=== PATIENT | male | born 1955 | race Caucasian/White ===

== ENCOUNTER → 2025-03-07 09:03 | Outpatient (REF) | payer MEDICARE, OTHER, SELFPAY | LOC: RAD 09:03 | PROVIDERS: ATTENDING PHYSICIAN Internal Medicine Cardiovascular Disease; FAMILY PHYSICIAN Family Medicine | DX: I35.0 Nonrheumatic aortic (valve) stenosis (principal) | CPT/HCPCS: 74174; 75572; Q9967 ==

== ENCOUNTER 2025-03-14 06:15 | Day surgery (SDC) | payer MEDICARE, OTHER, SELFPAY ==
[2025-03-14] VITALS (14 sets, daily range): BP systolic 119–149; BP diastolic 52–72; BMI 29.1
[2025-03-14 08:26] LABS: ACT-LR - POC 311 Seconds (116-155)
--- NOTE | 2025-03-14 08:51 | ITS.CL.CATH ---
[facility] - Catheterization
Cardiac Catheterization
Procedure Report:
CARDIAC CATHETERIZATION REPORT
Date of Procedure: 03/14/2025
Referring: MYLES Anand
Indication: Severe aortic valve stenosis, known coronary artery disease.
PROCEDURE:
1. Right heart catheterization.
2. Coronary angiography.
3. Successful IVUS of the left main coronary artery.
A total of 24 minutes of procedural/moderate sedation was utilized. An independent certified court/medical interpreter was present to assist with and help manage the patient's level of consciousness and physiologic status.
ACCESS:
1. 6 Omani right radial artery using a modified Seldinger technique.
2. [5] Omani right antecubital vein using a previously placed IV.
CATHETERS:
1. 5 Omani balloon wedge.
2. 5 Omani JL 3.5.
3. 5 Omani JR4.
4. 6 Omani JL 3.5 guiding catheter.
HEMODYNAMIC DATA
Weight (kg): 80.0
AO (s/d/x, mmHg): 120/50/72
LV (s/x, mmHg): Not obtained.
PCWP (a/v/x, mmHg):
PA (s/d/x, mmHg): 29/03/16
RV (s/x, mmHg): 27/12
RA (a/v/x, mmHg):
SVC SvO2 (%): 72.8
IVC SvO2 (%): Not obtained.
RA SvO2 (%): Not obtained.
RV SvO2 (%): Not obtained.
PA SvO2 (%): 74.4
SaO2 (%): 95.1
Hbg (g/dL): 13.4
KIRK
CO (L/min): 5.39
CI (L/min/m2): 2.84
Thermodilution
CO (L/min): Not performed.
CI (L/min/m2): Not performed.
TPG (mmHg): 5
PVR (Dockery Units): 0.93
SVR (dynes*seconds*cm^-5): 950
AVO2 Diff (Volume %): 3.77
Cardiac Power Output (kearney): 0.86 (MAP * CO)/451 (normal 0.5 - 0.7; 0.4 - 0.6 in the elderly)
Cardiac Power Index (kearney/m2): 0.45 (MAP * CI)/451
Lo: 1.75 (PAs-PAd)/RA
AV gradient (x, mmHg): Not obtained.
AV area (cm2): Not obtained.
MV gradient (x, mmHg): Not obtained.
MV area (cm2): Not obtained.
LEFT VENTRICULOGRAPHY: Not performed.
AORTOGRAPHY: Not performed.
CORONARY ANGIOGRAPHY
Dominance: Right.
Left Main: Normal size, bifurcating vessel. There is a 50% lesion in the ostium of the vessel with catheter dampening on engagement.
LAD: Large size vessel giving rise to 2 diagonals. A patent stent is visible in the mid vessel after D2. There are luminal irregularities in the mid LAD proximal to the stent and a 40% lesion in the ostium of the second diagonal.
Ramus: Congenitally absent.
Circumflex: Large size, nondominant vessel giving rise to 3 obtuse marginals. OM1 and OM 2 are small vessels supplying the proximal portion of the lateral wall. OM 3 is a large vessel supplying the majority of the inferolateral wall.
RCA: Large size, dominant vessel. The vessel is densely calcified and chronically totally occluded at its origin. The RPDA and distal RCA are supplied by robust rose-uw-evgob collaterals.
INTERVENTIONS
1. Successful IVUS of the 50% ostial left main coronary artery lesion demonstrating borderline stenosis (MLA = 6.0 mm�).
Narrative:
The decision was made to perform intracoronary imaging. The diagnostic catheter was removed over a wire and exchanged for 6 Omani JL 3.5 guiding catheter. The guiding catheter was advanced into the ascending aorta and seated in the left main
coronary artery. Additional heparin was given to obtain an ACT greater than 250 seconds. After crossing the lesion with a coronary wire, an IVUS catheter was advanced through the guiding catheter and into the ostium of the artery. Ring down was
performed once the imaging crystal was no longer inside of the guiding catheter. The IVUS catheter was advanced into the left main coronary artery. Intravascular ultrasound was performed in a retrograde fashion using a slow pullback. Intracoronary
imaging demonstrated dense calcification of the ostium of the vessel with borderline stenosis on available imaging (MLA = 6.0 mm�). The IVUS catheter was withdrawn, final angiography was performed and the catheter was disengaged.
Closure Device: Vascular band for the right radial artery, manual pressure for the right antecubital vein.
Radiation dose (mGy): 603.33
DAP (cm2.Gy): 49.0641
Fluoroscopy time (minutes): 7.4
CONCLUSIONS:
1. Right dominant circulation with a borderline 50% ostial left main coronary artery lesion (MLA = 6.0 mm�), luminal irregularities in the mid LAD followed by a widely patent mid LAD stent, a 40% lesion in the ostium of the second diagonal and a
chronic total occlusion of the ostium of the RCA with robust nmsy-vd-atoml collaterals.
2. Normal filling pressures (PCWP = 11 mmHg at 80.0 kg).
3. Normal cardiac function (cardiac index = 2.84 L/min/m�, cardiac power index = 0.86 W, Lo = 1.75).
4. Severe aortic valve stenosis by echocardiography.
RECOMMENDATIONS:
1. Expectant management after cardiac catheterization via right radial/antecubital approach.
2. Limited weight bearing on the right wrist for one week.
3. Maintain OMT/GDMT as hemodynamics will tolerate.
4. Discussion at TAVR conference regarding optimal valve replacement strategy given age and borderline ostial left main coronary artery stenosis.
Copy to: MYLES Anand, Pat Barr, D.O.
Scott Caraballo DO, FACC, FACP
== END 2025-03-14 11:47 | disposition home or self-care (01) ==
LOC: CATH 06:15
PROVIDERS: ATTENDING PHYSICIAN Internal Medicine Cardiovascular Disease; FAMILY PHYSICIAN Family Medicine; REFERRING PHYSICIAN Internal Medicine Cardiovascular Disease
DX: I35.0 Nonrheumatic aortic (valve) stenosis (principal); I25.10 Atherosclerotic heart disease of native coronary artery without angina pectoris; E78.5 Hyperlipidemia, unspecified; I10 Essential (primary) hypertension; I25.82 Chronic total occlusion of coronary artery; Z95.5 Presence of coronary angioplasty implant and graft
CPT/HCPCS: 92978; 99152; 99153; 85347; 93005; 93460; C1753; C1769; C1894; Q9967

== ENCOUNTER 2025-04-07 04:50 | Inpatient (IN) | payer MEDICARE, OTHER, SELFPAY ==
[2025-04-05 08:19] VITALS: BMI 27.4
[2025-04-05 09:06] LABS: Urine Character Clear (Clear)
[2025-04-05 09:13] LABS: Hematocrit 45.3 % (39.0-52.0); Hemoglobin 14.8 g/dL (13.0-18.0); Mean Corp Hgb Conc. 32.7 g/dL (33.0-37.0); Mean Corpuscular Volume 91.9 fL (80.0-94.0); Nucleated Red Blood Cells % 0 % (-); Platelet Count 247 10^3/uL (130-400); Red Cell Dist. Width 16.1 % (11.5-14.5)
[2025-04-05 09:17] LABS: INR 1.00; PT 13.3 Sec (11.4-14.6)
--- NOTE | 2025-04-05 09:41 | CM ---
Chart reviewed. Met with the patient in PAT. Reviewed preoperative and postoperative instructions and restrictions, along with showering guidelines. Gave patient 2 soaps. Patient is agreeable to a home visit by CT Transitional RN. Patient is
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 Plan is for the patient to return home with CT Transitional RN.
[2025-04-05 09:49] LABS: ALT (SGPT) 67 U/L (0-50); AST (SGOT) 58 U/L (17-59); Albumin 4.5 g/dl (3.5-5.0); Alkaline Phosphatase 64 U/L (38-126); Blood Urea Nitrogen 19 mg/dl (9-20); Calcium 9.8 mg/dl (8.4-10.2); Carbon Dioxide 32 mmol/L (22-30); Chloride 104 mmol/L (98-107); Estimated Creatinine Clearance 78 ml/min; Glucose 90 mg/dl (70-99); Potassium 4.5 mmol/L (3.5-5.1); Sodium 138 mmol/L (135-145); Total Protein 7.4 g/dl (6.3-8.2); eGFR > 60.00
[2025-04-05 10:42] LABS: Glycohemoglobin (HgbA1c) 5.3 % (4.0-5.9)
[2025-04-07] VITALS (19 sets, daily range): BP systolic 79–151; BP diastolic 50–75; BMI 27.0
[2025-04-07] MEDS: BACTROBAN 2% OINTMENT 1 APPLIC NASAL ×2 (05:24→20:16)
[2025-04-07] MEDS: MAGNESIUM OXIDE 400 MG PO (05:24)
[2025-04-07] MEDS: PROTONIX 40 MG PO (05:24)
[2025-04-07] MEDS: LOPRESSOR 12.5 MG PO (05:33)
--- NOTE | 2025-04-07 05:45 | PTCARENOTE ---
pt admitted into CVICU 2263. pt clipped and prepped for [facility]. wiped w/ CHG. pre-op meds given. pre-op education provided. health commissioner to [facility].
--- NOTE | 2025-04-07 06:07 | W.CVOR.SURPR ---
[facility] Surgeon Immed Pre Op
-
I have examined this patient prior to performance of the scheduled procedure.
The patient's condition is unchanged from the time of the dictated/written History and
Physical and the patient is able to undergo the scheduled procedure.
AVR (bio) + CABG x 2 + LAAE
[2025-04-07 07:26] LABS: ACT+ - POC 104 Seconds (82-134)
[2025-04-07 08:16] LABS: Urine Character Clear (Clear)
[2025-04-07 08:47] LABS: ACT+ - POC 498 Seconds (82-134)
[2025-04-07 09:04] LABS: B.E. - POC -0.3 mmol/L; Glucose - POC 99 mg/dl (70-99); HCO3 - POC 25 mmol/L (21-28); Hematocrit - POC 35 % PCV (42-52); Hemodilution- POC No; Hemoglobin Calculated - POC 11.9; Ionized Calcium - POC 1.18 mmol/L (1.15-1.33); Lactate - POC 0.39 mmol/L (0.36-0.75); O2 Saturation %Calculated-POC 99.9 % (94-98); PCO2 - POC 40 mmHg (35-48); PO2 - POC 323 mmHg (83-108); Potassium - POC 3.9 mmol/L (3.5-5.1); Sodium - POC 143 mmol/L (136-145); Specimen Type - POC Arterial; pH - POC 7.40 (7.35-7.45)
[2025-04-07 09:13] LABS: ACT+ - POC 530 Seconds (82-134)
[2025-04-07 09:31] LABS: ACT+ - POC 502 Seconds (82-134)
[2025-04-07 09:49] LABS: B.E. - POC 3.9 mmol/L; Glucose - POC 140 mg/dl (70-99); HCO3 - POC 27 mmol/L (21-28); Hematocrit - POC 34 % PCV (42-52); Hemodilution- POC Yes; Hemoglobin Calculated - POC 11.6; Ionized Calcium - POC 1.10 mmol/L (1.15-1.33); Lactate - POC 0.93 mmol/L (0.36-0.75); O2 Saturation %Calculated-POC 99.8 % (94-98); PCO2 - POC 34 mmHg (35-48); PO2 - POC 192 mmHg (83-108); POC Comment CPB; Potassium - POC 5.2 mmol/L (3.5-5.1); Sodium - POC 140 mmol/L (136-145); Specimen Type - POC Arterial; pH - POC 7.51 (7.35-7.45)
[2025-04-07 09:57] LABS: ACT+ - POC 529 Seconds (82-134)
[2025-04-07 10:08] LABS: B.E. - POC 2.6 mmol/L; Glucose - POC 147 mg/dl (70-99); HCO3 - POC 27 mmol/L (21-28); Hematocrit - POC 36 % PCV (42-52); Hemodilution- POC Yes; Hemoglobin Calculated - POC 12.2; Ionized Calcium - POC 1.13 mmol/L (1.15-1.33); Lactate - POC 1.01 mmol/L (0.36-0.75); O2 Saturation %Calculated-POC 99.8 % (94-98); PCO2 - POC 41 mmHg (35-48); PO2 - POC 233 mmHg (83-108); POC Comment CPB; Potassium - POC 4.3 mmol/L (3.5-5.1); Sodium - POC 141 mmol/L (136-145); Specimen Type - POC Arterial; pH - POC 7.43 (7.35-7.45)
[2025-04-07 10:16] LABS: ACT+ - POC 525 Seconds (82-134)
[2025-04-07 10:47] LABS: B.E. - POC 2.2 mmol/L; Glucose - POC 136 mg/dl (70-99); HCO3 - POC 27 mmol/L (21-28); Hematocrit - POC 36 % PCV (42-52); Hemodilution- POC Yes; Hemoglobin Calculated - POC 12.2; Ionized Calcium - POC 1.17 mmol/L (1.15-1.33); Lactate - POC 1.57 mmol/L (0.36-0.75); O2 Saturation %Calculated-POC 99.9 % (94-98); PCO2 - POC 40 mmHg (35-48); PO2 - POC 253 mmHg (83-108); POC Comment WARM; Potassium - POC 4.3 mmol/L (3.5-5.1); Sodium - POC 142 mmol/L (136-145); Specimen Type - POC Arterial; pH - POC 7.43 (7.35-7.45)
[2025-04-07 10:52] LABS: ACT+ - POC 123 Seconds (82-134)
--- NOTE | 2025-04-07 11:16 | W.PN.CT.SURG ---
CT Surgery Operative Note
-
CARDIAC SURGERY OPERATIVE REPORT
Preoperative Diagnosis: Aortic valve stenosis with multivessel coronary artery disease involving the ostial left main and RESIDENCY COORDINATOR to the proximal RCA
Postoperative Diagnosis: Same
Procedure(s) Performed:
1. Standard sternotomy with aortic right atrial cannulation
2. Left atrial appendage exclusion [35 mm device]
3. Surgical aortic valve replacement [27 mm biological valve]
4. Coronary artery bypass grafting x 2 (In situ VIGIL to LAD, Ao to RSVG to distal RCA)
5. Placement of temporary atrial ventricular pacing wires
6. Endoscopic vein harvest of the right lower extremity
7. Trans-esophageal echocardiography
Date of Surgery: 04/07/2025
Comorbidities:
1. Symptomatic severe aortic valve stenosis
2. Multivessel coronary artery disease involving the ostial left main
3. Hypertension
4. Hyperlipidemia
5. Carotid artery disease
6. Spinal stenosis
Attending Surgeon: Dirk Farooq MD, MS
Assistants: Floyd Spicer MD (PGY 2 Resident, opening, portion of the annular sutures, closure of part of the aortotomy, closure) Maryana Page PA-C (present and necessary to back office medical assistant, retraction, suction, exposure, suture management, and wound
closure under my direction), Eliana Das PA-C (endo vein harvest)
Anesthesiology: Eugenio Pires MD and Meghan Figueredo CRNA
Scrub and Circulating RNs: oYvani Diaz RN, Caitlyn Valencia RN
Custom Frame Assembler: Bev Kruse CCP
Anesthesia: GETA
EBL: per perfusion records
Products: None
CPB Time: 99 minutes
Aortic Cross Clamp Time: 83 minutes
Indication(s) for Procedures: This is a 69-year-old male who was initially being worked up for transcatheter aortic valve replacement but was found to have significant multivessel coronary artery disease. Given this finding he was referred for
surgery for evaluation of combined AVR and CABG. He is a low risk candidate with good baseline functional status. He was offered surgical revascularization as well as aortic valve replacement and ligation of left atrial appendage given his
elevated [id number] score.
Aortic Valve Description: Heavily calcified trileaflet aortic valve, most of the heavy calcification was towards the left and non coronary annulus. The left coronary artery was the normal anatomic position and the right had heavy calcification
around it consistent with his chronic total occlusion
Conduit(s) Quality:
VIGIL -large/good-quality target
RSVG -good/some minor varicosities overall good quality conduit
Target(s) Quality:
Distal RCA-good quality target with some diffuse plaque, mean flow with Transonic flow probe assessment was 60 cc a minute with a PI of 1.7
LAD -excellent/good quality target, mean flow in the LAD was 29 cc a minute with a pulse index of 3.4
Findings: LVEF on intraoperative DOUG was 60% and 65% post procedure with no new regional wall motion abnormalities. The aortic valve was heavily calcified and resected accordingly. A total of 13 nonpledgeted 2 Ethibond sutures were placed from
LVOT through annulus through sewing cuff securing a 27 mm biological prosthesis into place with core knots. There was no prosthetic PVL or AI. Mean gradient across the prosthesis was 6 mmHg. The VIGIL was harvested in a skeletonized fashion.
Following bypass grafting, test dose cardioplegia was given down each distal and confirmed patency and hemostasis. Each distal was probed both proximally and distally to confirm disease and patency, respectively. His cardiac index postoperatively
was well over 2 without inotropic support. He regained his sinus rhythm immediately after reanimation. There was a small bleeding at the heel of the VIGIL and LAD anastomosis which was repaired with a 7-0 Prolene and some topical hemostatic agents.
He did not require any blood products, did not require inotropic support. His left atrial appendage was verified to be free of any thrombus or debris preoperatively and found to be totally occlusive postoperatively.
Specimen(s): Aortic valve leaflets.
Prosthesis: 27 mm Mack Inspiris Resilia aortic valve, serial number: [id number], left atrial appendage clip, serial #[id number].
Description of Procedure: The patient was taken to the operating room. Their identity and procedure to be performed were verified and they were positioned supine on the operating table. Induction via general anesthesia with endotracheal intubation
was performed and central venous access and arterial monitoring were inserted. A preoperative transesophageal echocardiogram was performed. The patient was then prepped and draped from chin to feet in a sterile fashion. A preoperative time-out was
performed with all members of the team present. A midline chest incision was performed along with median sternotomy. Simultaneous endoscopic access of the right lower extremity for saphenous vein harvest was obtained along with administration of an
initial 5,000 units of IV heparin. A RulTract sternal retractor was positioned to exposure the left internal mammary bed. The mammary was harvested in a skeletonized fashion and found to have good flow. 2 medium clips were applied to the distal end
of the mammary after dividing it. It was wrapped in a papaverine soaked RayTec and replaced back into the left hemithorax. The RulTract was exchanged for a median sternal retractor. The innominate vein was isolated. Full heparinization was given (a
total of 52,000 units). I created a pericardial well. The aortic cannulation site was chosen where it was soft, pliable, and free of calcium. Cannulation was performed with an arterial cannula in the ascending aorta and a triple-stage venous cannula
through the right atrial appendage. The arterial cannula line had an appropriate bounce and correlating pressures with test dosing. Next, a root vent/antegrade cannula was inserted into the ascending aorta. The ACT was confirmed to be over 400 and
retrograde autologous priming was performed before commencing cardiopulmonary bypass. The pulmonary artery was away from the aorta to facilitate a clamp site. The aortic cross-clamp was placed after decreasing the flow on the bypass and
mean arterial pressure. A total of 1.2L initial dose of antegrade Del-Nido cardioplegia solution was given and planned for re-dosing every 75 minutes as necessary. There was rapid electro-mechanical arrest of the heart at 500-600 cc of cardioplegia
as he had a mild degree of aortic valve insufficiency. The left ventricle was observed for distention on echocardiogram and manual palpation. Cold slush was placed into a sponge and topically on the RV while we systemically cooled to 34 degrees
centigrade. Once the heart was fully arrested is rotated medially and the left atrial appendage was clipped flush the base with a 35mm device.
I positioned the heart to expose the distal right coronary. A [place]ham blade was used to expose the coronary and perform the arteriotomy. Coronary Mullins scissors were used to enlarge the incision. The saphenous vein was trimmed and beveled to an
appropriate size. The distal anastomosis was performed using 7-0 prolene in an end-to-side fashion. Antegrade cardioplegia was administered into the graft. Appropriate hemostasis and flow were confirmed. The graft was measured for length to the
aorta and cut. A suitable target on the mid left anterior descending was identified. We dissected and prepared the distal target in a similar fashion. We retrieved the VIGIL from the chest and created a pericardial opening while being cognizant of
the phrenic nerve to facilitate the course of the mammary. The distal end of the mammary was prepped and beveled to size. We verified orientation and length of the RICHA and found brisk flow. An end-to-side anastomosis was created with a 7-0 prolene.
We temporarily released the bulldog clamp on the mammary to inspect flow. Perfusion to the LAD territory was visualized and hemostasis was confirmed. The bull clamp was replaced on the mammary.
Carbon dioxide was used to flood the field. I turned my attention to the aortic valve and manually identified the location of the right coronary take off. An aortotomy was made approximately 1.5cm above the sinotubular junction. The location of both
left coronary vessel was visualized in the root. The aortic valve was inspected and found to be heavily calcified. The leaflets were excised and sent for pathological assessment. The annulus was debrided of any calcium. The root and left ventricular
outflow tract were thoroughly irrigated to remove any debris. A total of 13, non-pledgeted 2-0 TiCron annular sutures were placed [id number] circumferentially. These were brought through the sewing cuff of the prosthetic valve which as then
parachuted into place. The left and right coronary ostia were visualized and were unobstructed by the valve. A Cor-Knot device was used to secure the annular sutures. The valve was inspected and was well seated. The aortotomy was approximated with
4-0 prolene in two layers. The heart was filled and the root was distended with antegrade cardioplegia to make final assessment of graft length and orientation. I created 1 aortotomy using a #11 blade then a 4.0mm aortic punch above the aortic
suture line. The proximal anastomoses were created in an end-to-side fashion using 6-0 prolene. At the same time, we started to re-warm to 36.5 degrees centigrade. The bulldog clamp was removed from the mammary and temporary bipolar ventricular
pacing wires were placed on the base of the right ventricle. The patient was placed in a Trendelenburg position and flows on bypass were lowered. The aortic cross clamp was removed and flows were slowly brought back up. The aortotomy appeared
hemostatic. All bypass grafts were inspected and were free from kinking or twisting. The distal and proximal anastomoses appeared hemostatic. De-airing maneuvers were performed. Transesophageal echocardiography revealed no paravalvular leak and
appropriate prosthetic function. Once de-airing was satisfactory, the left ventricular and root vents were removed. After verifying acceptable parameters, we initiated weaning from cardiopulmonary bypass. Once we were off cardiopulmonary bypass, the
venous cannulas was clamped and removed. A test dose of protamine was administered and the patient was monitored for any adverse reaction before resuming protamine. Once half of the protamine dose was delivered, pump suckers were turned off and the
systolic blood pressure was lowered for aortic decannulation. The aortic cannula was removed and pursestrings were tied down. All cannulation sites were oversewn with a 4-0 prolene. The aortic line, proximal, and distal coronary anastomoses were
hemostatic. The mammary bed was inspected and hemostasis was confirmed. Once the mediastinum was hemostatic, a 19Fr Parth drain was placed in the left pleural cavity and two 24Fr Parth drains were placed within the pericardium. The sternum was
approximated with 8#7 single stainless steel wires with plates were reinforcement. Fascia was approximated with #1 vicryl suture. The subcutaneous, dermis and epidermis were closed in layers in a running fashion. The skin wound was cleansed and
dressed.
All instrument, sponge, and needle counts were confirmed to be correct x 2 at the end of the operation. The patient was transferred to the cardiac intensive care unit in critical but stable condition.
I, Dr. Dirk Farooq, was present, scrubbed for, and performed all critical elements of this procedure.
Dirk Farooq MD, MS
Cardiothoracic Surgeon
[facility]
This operative dictation was created using the eNovance dictation system. Please excuse any grammatical, typographical, or 'sound alike' errors
[2025-04-07 11:46] LABS: B.E. - POC -0.7 mmol/L; Glucose - POC 98 mg/dl (70-99); HCO3 - POC 25 mmol/L (21-28); Hematocrit - POC 33 % PCV (42-52); Hemodilution- POC Yes; Hemoglobin Calculated - POC 11.2; Ionized Calcium - POC 1.20 mmol/L (1.15-1.33); Lactate - POC 2.10 mmol/L (0.36-0.75); O2 Saturation %Calculated-POC 100.0 % (94-98); PCO2 - POC 46 mmHg (35-48); PO2 - POC 406 mmHg (83-108); POC Comment POST; Potassium - POC 3.9 mmol/L (3.5-5.1); Sodium - POC 144 mmol/L (136-145); Specimen Type - POC Arterial; pH - POC 7.35 (7.35-7.45)
[2025-04-07] MEDS: NEURONTIN PO ×2 (11:48→16:02)
--- NOTE | 2025-04-07 12:21 | CM ---
Chart reviewed. Patient is in the OR today. Patient is independent of ADLS, lives with his in a 2 STH, 2 JULIA, 0 DME. Plan is for the patient to return home with CT Transitional RN. CM to follow
--- NOTE | 2025-04-07 12:30 | PTCARENOTE ---
Received patient from [facility] at 1230. Pt intubated and sedated on precedex gtt. 8.0 ETT 23cm at the lip. SIMV 40% 550 5/5 POX 96%. No breathing over the vent noted. Pt unresponsive. PERRLA 3mm brisk. NSR on tele with rates in the 60s. BP goal 90-[address] Farooq. Bilateral radial pulses palpable, Bilateral DP pulses present via doppler. CI 2.53. PA pressures 20s/10s. CVP 10. No edema noted. +rub. Epicardial AV wires set to AAI 40/10/0.4, thresholds completed by CTNP. Lungs clear anteriorly.
Left pleural chest tube to -20cm suction draining red fluid. Mediastinal chest tubes x2 y-sited to 1 atrium to -20cm suction draining red fluid. No air leaks, tidaling, crepitus noted. Abdomen soft. Hypoactive BS. Coffey catheter intact draining
adequate amounts of clear yellow urine. Sternal incision approximated with skin glue, NUTRITIONAL SERVICES HOST. CT dressing CDI. Right groin puncture site approximated with skin glue. Right lower leg incision approximated with skin glue, SYDNI CDI. Right IJ cordis with
swan floated to 48cm. Left radial chrisatl intact with appropriate waveform. All lines flushed, leveled, zeroed. Right forearm 18g PIV intact. See MAR for medication administration. See worklist for complete nursing assessment. Post op EKG, CXR, and
labs completed.
--- NOTE | 2025-04-07 12:39 | W.PN.UPDATE ---
Update Note
Progress Note Update
69 year old male was electively admitted 04/07/25 for AVR/CABG/ELAA due to severe aortic stenosis with symptoms of shortness of breath and dyspnea on exertion, multivessel CAD
IV fluids: 2500
U.O.:� 850
Blood:� none
Wires:� 2 atrial and 1 bipolar V wire
Drips: Levophed, Insulin, Precedex
�
NEURO: sedated, pupils +2mm B/L
RESP: #8OT @22cm> 550/40%/14/5. Lungs clear B/L. 2 mediastinal 5 on arrival) and L pleural (0cc on arrival) chest tubes to -20cm suction. Sanguineous drainage
CV: RRR +S1, S2, no S3, no�rub, no murmur. Dermabond to median sternotomy. RIJ w/Head Waters locked @ 49cm. PA 27/14; CVP 10; C.O 4.73/CI 2.53
ABD: flat, soft, no BS
EXT: no edema, +2/4 DP pulses B/L, no femoral bruit, RLE SYDNI wrap intact; left radial A-line intact
: Coffey with clear yellow urine
�
A/P: POD #0 s/p aortic valve replacement [27 mm biological valve], CABG x 2 (VIGIL to LAD, SVG to distal RCA), left atrial appendage exclusion [35 mm device]
DOUG: EF�65%, AV 11/6mmHg, tr AI, tr MR, mild TR�
- wean and extubate
- keep SBP 90-110
- will need instruction regarding antibiotic prophylaxis for dental and invasive procedures
- insulin x 24 hours
# CAD
- will require ASA, Plavix, statin, beta-carmelita
�
# acute surgical blood loss anemia-expected
- trend CBC
�
[2025-04-07 12:41] LABS: Glucose - Point of Care 130 mg/dl (70-99)
[2025-04-07 12:49] LABS: B.E. 2.0 mmol/L; HCO3 26.5 mmol/L (21-28); O2 Saturation % 99.4 % (94-98); PCO2 40 mmHg (35-48); PO2 155 mmHg (83-108); Potassium 4.1 mMOL/L (3.5-5.1); Sodium 137 mMOL/L (136-145)
[2025-04-07 13:02] LABS: Blood Urea Nitrogen 18 mg/dl (9-20); Estimated Creatinine Clearance 89 ml/min; Glucose 123 mg/dl (70-99); Magnesium 2.5 mg/dl (1.6-2.3)
[2025-04-07] MEDS: NSS 500 IV (13:02)
[2025-04-07] MEDS: TYLENOL PO (13:02)
[2025-04-07] MEDS: ANCEF 10 IV ×2 (13:02)
[2025-04-07 13:07] LABS: Hematocrit 37.6 % (39.0-52.0); Hemoglobin 12.8 g/dL (13.0-18.0); Platelet Count 155 10^3/uL (130-400)
--- NOTE | 2025-04-07 13:08 | CON.INTV ---
Consultation
Consultation Request
Date/Time Consultation Requested: 04/07/25
Date/Time Consultation Performed: 04/07/25
Performing Provider: David
Reason for Consultation: CVICU
Medical History
-
History of Present Illness:
69-year-old male with previous history of CAD, aortic stenosis, hypertension undergoing workup for TAVR with known history of severe . Underwent recent left heart catheterization on 03/14/2025 which demonstrated chronically occluded RCA, 50% left
main. Underwent surgical aortic valve replacement with bypass x 2 on 04/07/25. Perioperatively transferred to CVICU for further management on mechanical ventilation.
Past Medical History
Past Medical History: Other (see list below)
Allergies / Home Medications
Allergies
Allergy/AdvReac Type Severity Reaction Status Date / Time
Penicillins Allergy Severe Hives Verified 04/01/25 10:49
Home Medications
�Medication �Instructions �Recorded �Confirmed �Last Taken �Type
aspirin 81 mg tablet,delayed 81 mg PO DAILY Blood Clot 02/09/21 04/07/25 04/06/25 08:00 History
release Prevention/Tx
metoprolol succinate 25 mg 12.5 mg PO DAILY Blood Pressure 08/30/22 04/07/25 04/06/25 08:00 History
tablet,extended release 24 hr
omega-3 fatty acids 1,000 mg 1,000 mg PO TID Supplement 08/30/22 04/07/25 03/29/25 History
capsule
red yeast rice 600 mg capsule 600 mg PO TID Supplement 08/30/22 04/07/25 03/29/25 History
ascorbic acid (vitamin C) 1,000 mg 1,000 mg PO 4XD Supplement 03/14/25 04/07/25 03/29/25 History
tablet (Vitamin C)
cholecalciferol (vitamin D3) 125 125 mcg PO DAILY Supplement 03/14/25 04/07/25 03/29/25 History
mcg (5,000 unit) tablet (Vitamin
D3)
garlic 500 mg capsule 500 mg PO DAILY Supplement 03/14/25 04/07/25 03/29/25 History
minerals 1 tab PO TID Supplement 03/14/25 04/07/25 03/29/25 History
vitamin B complex 1 cap PO DAILY Supplement 03/14/25 04/07/25 03/29/25 History
soybean, fermented 50 mg capsule 150 mg PO DAILY Supplement 04/01/25 04/07/25 03/29/25 History
(Nattokinase)
turmeric root extract 500 mg 500 mg PO DAILY Supplement 04/01/25 04/07/25 03/29/25 History
capsule (Curcuplex-95)
Review of Systems
-
Unable to Obtain full review of systems at this time due to: Patient Intubation
Vitals / Labs / Diagnostic Testing
Vital Signs
Temp Pulse Resp BP Pulse Ox
96.0 F L 66 14 97/50 96
04/07/25 13:00 04/07/25 13:00 04/07/25 13:00 04/07/25 13:00 04/07/25 13:00
Lab Data
04/07/25 12:33
Laboratory Results
04/07/25
12:33
pH 7.43
pCO2 40
pO2 155 H
HCO3 26.5
O2 Delivery Level
Microbiology
04/05/25 08:28 Nose MRSA Screen - Final
No Methicillin Resistant Staphylococcus aureus isolated.
Diagnostic Testing:
Physical Exam
-
HEENT: Normocephalic, Anicteric and Moist Mucous Membranes
Cardiovascular: S1/S2 and Regular Rhythm
Respiratory: Clear, Non-Labored Respirations and Other (ETT/chest tube)
GI: Soft, Non Distended and Non Tender
Neurology: Other (sedated/intubated)
Skin: Warm and Dry
General: Comfortable and Other (NAD)
Assessment
-
69-year-old male with previous history of CAD, aortic stenosis, hypertension undergoing workup for TAVR with known history of severe . Underwent recent left heart catheterization on 03/14/2025 which demonstrated chronically occluded RCA, 50% left
main. Underwent surgical aortic valve replacement with bypass x 2 on 04/07/25. Perioperatively transferred to CVICU for further management on mechanical ventilation.
Aortic valve stenosis with multivessel coronary artery disease involving the ostial left main and DIVISION HUMAN RESOURCES MANAGER to the proximal RCA s/p Surgical aortic valve replacement [27 mm biological valve] & Coronary artery bypass grafting x 2 (In situ VIGIL to LAD, Ao
to RSVG to distal RCA) 04/07/25
Perioperative mechanical ventilation
Postoperative anemia
Conditions present prior to admission
coronary artery disease s/p cardiac stent x2 2020
severe aortic stenosis
hypertension
dyslipidemia
carotid artery disease
spinal stenosis
BL CTR
cyst removed from elbow
hip replacements x2 BL
BL knee replacement
Plan
S/p AVR/CAB POD #0
Titrate off pressors per protocol
ECHO reviewed with normal function/ stage II DD noted
PA catheter readings reviewed
Management of chest tubes per primary service
Intubated/sedated, initiate SAT when able
Pain control
RASS goal of 0 to -1
Intubated for procedure, SBT trial when patient able to spontaneously breath
Current vent settings: SIMV
ABG(s) reviewed/adequate
CXR with no obvious opacities/infiltrates, low lung volumes, ETT in good position, lines/tubes in place
Extubate per protocol
Maintain supplement oxygen as needed
No prior history of pulmonary disease
Prior PFTs reviewed--normal
Can add nebulizers if needed
Aspiration precautions
Encouraged incentive spirometry, OOB/ambulation/early mobility
Advance diet as tolerated following extubation
GI prophylaxis if indicated for mechanical ventilation >48 hours
Monitor critical I/O's
Coffey/chest tube output
Hb/platelets postoperatively stable
Trend CBC for now
Can transfuse if indicated for Hb <7, plt <50 in surgical patients
DVT prophylaxis including SCDs
Insulin protocol initiated and ongoing
Transition to SQ/off as indicated per team
We will follow
Diagnostic Data
Chest X-Ray: 04/07/25- 1. Clear lungs. 2. Tubes and lines noted
CT Scan: CHEST 03/07/25- Chest: Small subpleural right lower lobe pulmonary nodules measuring up to 4 mm (series 716, images 81, 86 and 89). No areas of airspace disease, pleural effusions, pericardial effusions or enlarged lymph nodes in the thorax.
Origins of the great vessels from the aortic arch are patent. Moderate coronary artery and aortic valve calcifications.
DOUG 04/07/25-Overall LVEF is approximately 55% with no RWMA. Moderate concentric left ventricular hypertrophy. Stage II Diastolic dysfunction. Trace mitral regurgitation. Mild tricuspid regurgitation. Moderate to severe aortic stenosis. Mild
aortic insufficiency. HANNY calculates to 1.2 cm2 by continuity equation. Mid ascending aorta is nelia dilated measuring 3.5 cm at the level of the RPA. Mild sessile atheroma noted in the descending aorta and distal arch.
[facility] 03/14/25-Successful IVUS of the 50% ostial left main coronary artery lesion demonstrating borderline stenosis (MLA = 6.0 mm�).
PFT's: 04/05/2025-FEV1 3.69 L 131%, FVC 4.73 L 128%, ratio 78. TLC 6.2 98% DLCO 132% --normal study
Reports and relevant images were personally reviewed.
Critical Care time 50 mins -- The patient is admitted for acute critical illness for the treatment of vital organ failure and/or prevention of further life-threatening conditions. Total care includes time spent in review of history, physical exam,
medications, hemodynamic/ventilator parameters, laboratory data, imaging and discussion with house staff, pharmacy, respiratory therapy, customer solutions coordinator, and nursing.
[2025-04-07 13:35] LABS: INR 1.44; PT 17.2 Sec (11.4-14.6)
[2025-04-07 13:39] LABS: APTT 30.9 Sec (23.4-35.0)
[2025-04-07 13:48] LABS: Glucose - Point of Care 112 mg/dl (70-99)
[2025-04-07] MEDS: LR 250 ML IV ×4 (13:52→14:54)
[2025-04-07 14:58] LABS: Glucose - Point of Care 106 mg/dl (70-99)
--- NOTE | 2025-04-07 15:05 | PTCARENOTE ---
Pt awoke very suddenly thrashing, biting tube. Able to calm patient down. Reoriented pt. Pt able to squeeze hands and wiggle toes and open eyes. RT notified to place pt on cpap trial.
--- NOTE | 2025-04-07 15:35 | PTCARENOTE ---
RT at bedside to place pt on cpap trial. Pt tolerating. POX 95%.
[2025-04-07 16:01] LABS: Glucose - Point of Care 100 mg/dl (70-99)
[2025-04-07] MEDS: PACERONE PO (16:02)
--- NOTE | 2025-04-07 16:10 | RESPNOTE ---
Patient extubated to a 6L nasal cannula following cpap trial and ABG
--- NOTE | 2025-04-07 16:10 | PTCARENOTE ---
RT at bedside, per CT CARE ADVOCATE, ok to extubate. RT extubated pt to 6L NC. Pt tolerated. POX 100% on 6L NC. Pt able to state his name, rick, that he is in the hospital for open heart surgery and that the month is april, pt stated it was the year 2020, pt
reoriented. IS encouraged-1750mL achieved. SR on tele with rates in the 60s-70s, occasional PACs. SBP maintained 90-110, titrating levo and cardene to maintain. CI 2.48. CVP 8-9. Coffey draining adequate amounts of clear yellow urine. CT output WNL.
Surgical sites stable. All lines remain intact. Insulin gtt infusing. Pt bathed with CHG wipes. Turned and repositioned, sacral boarded pulled back, no skin breakdown. Pt tolerated turn. Resting in bed. Pt's updated on extubation.
[2025-04-07 16:11] LABS: B.E. - POC 0.9 mmol/L; Blood Urea Nitrogen - POC 18 mg/dl (3-120); Chloride - POC 111 mmol/L (96-111); Creatinine - POC 0.88 mg/dl (0.3-1.0); Glucose - POC 115 mg/dl (70-99); HCO3 - POC 25 mmol/L (21-28); Hematocrit - POC 38 % PCV (42-52); Hemodilution- POC No; Hemoglobin Calculated - POC 13.0; Ionized Calcium - POC 1.20 mmol/L (1.15-1.33); Lactate - POC 1.78 mmol/L (0.36-0.75); O2 Saturation %Calculated-POC 99.5 % (94-98); PCO2 - POC 37 mmHg (35-48); PO2 - POC 161 mmHg (83-108); Potassium - POC 4.1 mmol/L (3.5-5.1); Sodium - POC 143 mmol/L (136-145); Specimen Type - POC Arterial; pH - POC 7.43 (7.35-7.45)
[2025-04-07 16:12] LABS: Hematocrit 38.4 % (39.0-52.0); Hemoglobin 13.3 g/dL (13.0-18.0); Platelet Count 163 10^3/uL (130-400)
[2025-04-07 17:05] LABS: Glucose - Point of Care 130 mg/dl (70-99)
[2025-04-07] MEDS: LOW STRENGTH ASPIRIN 81 MG PO (17:30)
[2025-04-07] MEDS: ANCEF 5 IV (17:57)
[2025-04-07 19:01] LABS: Glucose - Point of Care 85 mg/dl (70-99)
--- NOTE | 2025-04-07 19:17 | PTCARENOTE ---
Received pt from day shift RN at 1900. Pt AOx4, no complaints of pain, moves all extremities, a little forgetful, but easily reoriented. NSR HR 60s, Rub present, AV wires, AAI 40, 10, .4, SBP goal 90-110, on 7.5 cardene to maintain goal, PAs
20s/10s, CVP 5-8, palpable radial pulses, doppler dps, no edema. Resp, on 4L SPO2>96%, lungs clr, 3 CT -20 suction, no air leak, no crepitus, draining serosanguineous. Hypoactive bowel sounds, snell clr, draining yellow urine. MS ESEQUIEL, surgical glue,
approximated, CDI, RLE puncture and graft site, jacob wrap in place. RIJ valentin w/tyree at 48, PIV x1. Cardene and insulin gtt infusing. See flowsheet for further documention.
[2025-04-07] MEDS: SENOKOT 8.6 MG PO (20:15)
[2025-04-07] MEDS: DILAUDID 0.25 MG IV (20:47)
[2025-04-07 21:01] LABS: Glucose - Point of Care 114 mg/dl (70-99)
[2025-04-07] MEDS: PACERONE 200 MG PO (22:07)
[2025-04-07] MEDS: NEURONTIN 100 MG PO (22:07)
[2025-04-07] MEDS: TYLENOL 975 MG PO (22:07)
[2025-04-07] MEDS: LIPITOR 40 MG PO (22:07)
[2025-04-07] MEDS: CARDENE 200 IV (22:30)
[2025-04-07 22:58] LABS: Glucose - Point of Care 114 mg/dl (70-99)
[2025-04-07] MEDS: ROXICODONE 5 MG PO (23:04)
--- NOTE | 2025-04-07 23:29 | PTCARENOTE ---
Pt reassessment unchanged, NSR HR 60-70s, Titrating cardene to keep SBP 90-110, CT CONSUMER SERVICES CONSULTANT aware of SBP above goal, cont to inc cardene, may switch to nitro if spo2 drops. Pt given IV 0.25 dilaudid and PO Anika 5mg for incisional pain.
[2025-04-08] VITALS (32 sets, daily range): BP systolic 74–147; BP diastolic 41–78; PULSE 63–66; O2SAT 97–100; BMI 28.0
[2025-04-08] MEDS: NITROGLYCERIN PREMIX 250 IV (00:38)
[2025-04-08 01:10] LABS: Glucose - Point of Care 86 mg/dl (70-99)
[2025-04-08] MEDS: CARDENE 200 IV (01:17)
[2025-04-08] MEDS: ANCEF 5 IV ×2 (01:17→09:58)
[2025-04-08] MEDS: LR 250 ML IV (01:59)
[2025-04-08 03:07] LABS: Glucose - Point of Care 126 mg/dl (70-99)
[2025-04-08 03:16] LABS: Hematocrit 34.8 % (39.0-52.0); Hemoglobin 11.8 g/dL (13.0-18.0); Mean Corp Hgb Conc. 33.9 g/dL (33.0-37.0); Mean Corpuscular Volume 90.2 fL (80.0-94.0); Platelet Count 145 10^3/uL (130-400); Red Cell Dist. Width 16.1 % (11.5-14.5)
--- NOTE | 2025-04-08 03:35 | PTCARENOTE ---
Pt reassessment unchanged except BPs very labile, weaned off cardene and added in Nitro, pt became hypotensive SBP low 80s, nitro held and 250 LR bolus given. Shortly after bolus finished, pt SBP persistently >120, nitro restarted and titrated up,
SBP in 120s now on 60mcg Nitro, CT FULL TIME BABYSITTER aware and ok to leave Nitro at 60mcg. CHG bath completed, leads replaced, gown changed, labs sent and EKG completed. Plan to remove swan and snell, leaving christal while on Nitro gtt.
[2025-04-08 03:41] LABS: Blood Urea Nitrogen 27 mg/dl (9-20); Calcium 8.7 mg/dl (8.4-10.2); Carbon Dioxide 26 mmol/L (22-30); Chloride 108 mmol/L (98-107); Estimated Creatinine Clearance 78 ml/min; Glucose 120 mg/dl (70-99); Magnesium 2.2 mg/dl (1.6-2.3); Potassium 4.5 mmol/L (3.5-5.1); Sodium 136 mmol/L (135-145); eGFR > 60.00
--- NOTE | 2025-04-08 03:50 | W.PN.CT ---
Today's Communication / Plan
-
-pod #1
-no significant issues overnight, denies pain
-sbp 90-[address] Farooq, liberate to 90-130 today
-CI 3.11, CO 5.82, SVR 893. Drips: Nitro 60, Insulin
-CT outputs: 2 meds 135/275, L pleur 15/30 in 12/24 hrs
-gave 12.5 mg of Lopressor early to wean off Nitro
-deline
-d/c insulin
-d/c Coffey
-maintain Cordis
-maintain pw (AAI 40 backup)
-current meds (ASA, Plavix, Lipitor, Lopressor, Amio, Protonix)
-encourage IS, OOB
Assessment / Plan
-
- Severe symptomatic and mv-CAD - s/p Surgical aortic valve replacement [27 mm Mack Inspiris Resilia biological valve]; Coronary artery bypass grafting x 2 (In situ VIGIL to LAD, Ao to RSVG to distal RCA); Left atrial appendage exclusion [35 mm
device] by Dr. Farooq on 04/07/25, pod #1
- Intraop DOUG: LVEF was 60% pre and 65% post procedure with no new regional wall motion abnormalities. His left atrial appendage was verified to be free of any thrombus or debris preoperatively and found to be totally occlusive postoperatively.
- Symptomatic severe aortic valve stenosis
- Multivessel coronary artery disease involving the ostial left main and SMALL KICK PRESS OPERATOR of RCA
- Hypertension
- Hyperlipidemia
- Carotid artery disease
- Spinal stenosis
- Acute postop blood loss anemia
- Acute postop atelectasis
- Acute postop hypovolemia with subsequent hypervolemia
- Suspected acute postop pericarditis on ECG/+rub
Discussed patient care with: Nursing and Care Team
Subjective
-
Date of Service: April 08, 2025
Objective Data
-
PT 17.2 Sec (11.4-14.6) H 04/07/25 12:33
INR 1.44 04/07/25 12:33
APTT 30.9 Sec (23.4-35.0) 04/07/25 12:33
Vital Signs
Vital Signs
Temp Pulse Resp BP Pulse Ox
98.4 F 63 16 103/57 94
04/08/25 00:00 04/08/25 00:15 04/08/25 00:15 04/08/25 00:00 04/08/25 00:15
CT Intake/Output/Weight
04/07/25 04/07/25 04/08/25
06:59 18:59 06:59
Intake Total 1357.8 / 1838.4 480.6 / 1838.4
Output Total 570 / 945 375 / 945
Balance 787.8 / 893.4 105.6 / 893.4
SaO2: 94
Physical Exam
-
General: Awake and AOx3
Cardiovascular: Regular rate & rhythm, No Murmurs and Rub
Respiratory: Decreased Breath Sounds
Sternum: Stable
Incision: Clean, Dry and Intact
Extremities: No Edema (2 PTs b/l)
Abdomen: soft, nontender, nondistended, no bowel sounds
Data Reviewed
-
Lab Results: Results Reviewed
Medications: Active Meds Reviewed
Chest X-Ray: Report Reviewed and Image Reviewed
ECG: Report Reviewed and Image Reviewed
[2025-04-08] MEDS: LOPRESSOR 12.5 MG PO ×2 (04:21→20:21)
[2025-04-08 04:31] LABS: Hepatitis C Antibody Negative (Negative)
[2025-04-08] MEDS: TYLENOL 975 MG PO ×3 (05:33→22:42)
[2025-04-08 05:39] LABS: Glucose - Point of Care 92 mg/dl (70-99)
[2025-04-08 07:57] LABS: Glucose - Point of Care 121 mg/dl (70-99)
--- NOTE | 2025-04-08 08:00 | PTCARENOTE ---
Patient received from night assistant resting oob in chair, AAO x 3, c/o procedural pain, medicated (see MAR). SB/NSR via cm, SaO2 @ 96% on 3lnc. RIJ Cordis w/kvo infusing. L radial arterial line present - leveled, flushed, and calibrated w/good
waveform returned. Epicardial A+V wires to pulse generator set to backup rate AAI 40bpm, no spikes noted. Mediastinal chest tubes x 2, Y-connected to one pleurevac, L pleural chest tube to separate pleurevac - both placed to -20cm suction w/no air
leaks appreciated. Insulin infusing peripherally, titrating per glycemic protocol. Coffey d/c'd prior to getting oob, DTV 12pm. All procedural sites stable. Patient updated to plan of care for the day, in agreement. See work list for full assessment
and interventions performed.
[2025-04-08] MEDS: ROXICODONE 5 MG PO ×2 (08:14→20:23)
[2025-04-08] MEDS: BACTROBAN 2% OINTMENT 1 APPLIC NASAL ×2 (08:14→20:21)
[2025-04-08] MEDS: NEURONTIN 100 MG PO ×3 (08:15→22:41)
--- NOTE | 2025-04-08 08:34 | W.PN.CD ---
Today's Communication / Plan
-
Continue routine post operative management.
Not yet ready for diuresis.
Incentive spirometry.
Ambulate when appropriate.
Impression / Plan
-
Impression/Plan: 69 y/o male with severe and 2V CAD admitted for elective CABG + SAVR.
#CAD
-Chronic, progresive.
-S/P CABG x 2 (VIGIL to LAD, SVG to RPDA) with Dr. Farooq, 04/07/2025:
-Telemetry is benign.
-Routine post operative management.
-Pain, chest tube management per CT surgery.
-Incentive spirometry.
-Ambulation when appropriate.
-Secondary prevention with aspirin, atorvastatin.
-Not yet ready for diuresis given BP lability.
#Severe
-Chronic, progressive.
-S/P #[address] Mack Resilia [address]R with Dr. Farooq, 04/07/2025.
-Post operatve management as above.
Subjective/Interval History:
SAVR/CABG yesterday.
Labile BP.
Weight up 2.8 kg.
SaO2 96%on 2LNC.
DATA:
Cardiac Catheterization, 03/14/2025:
CONCLUSIONS:
1. Right dominant circulation with a borderline 50% ostial left main coronary artery lesion (MLA = 6.0 mm�), luminal irregularities in the mid LAD followed by a widely patent mid LAD stent, a 40% lesion in the ostium of the second diagonal and a
chronic total occlusion of the ostium of the RCA with robust [id number] collaterals.
2. Normal filling pressures (PCWP = 11 mmHg at 80.0 kg).
3. Normal cardiac function (cardiac index = 2.84 L/min/m�, cardiac power index = 0.86 W, Lo = 1.75).
4. Severe aortic valve stenosis by echocardiography.
SAVR/CABG, 04/07/2025:
Procedure(s) Performed:
1. Standard sternotomy with aortic right atrial cannulation
2. Left atrial appendage exclusion [35 mm left atrial appendage clip, serial #[id number]]
3. Surgical aortic valve replacement [27 mm Mack Inspiris Resilia aortic valve, serial number: [id number]]
4. Coronary artery bypass grafting x 2 (In situ VIGIL to LAD, Ao to RSVG to distal RCA)
5. Placement of temporary atrial ventricular pacing wires
6. Endoscopic vein harvest of the right lower extremity
7. Trans-esophageal echocardiography
Physical Exam
Vital Signs/Labs
Vital Signs
Temp Pulse Resp BP Pulse Ox
36.6 C 60 18 111/60 96
04/08/25 08:00 04/08/25 08:00 04/08/25 08:00 04/08/25 08:00 04/08/25 08:00
04/06/25 04/07/25 04/08/25
11:59 11:59 11:59
Actual Weight 77 kg 79.8 kg
04/08/25 02:58
04/08/25 02:58
PT 17.2 Sec (11.4-14.6) H 04/07/25 12:33
INR 1.44 04/07/25 12:33
APTT 30.9 Sec (23.4-35.0) 04/07/25 12:33
Magnesium 2.2 mg/dl (1.6-2.3) 04/08/25 02:58
Physical Exam
Constitutional: No acute distress and Comfortable
EENT: Anicteric and Moist mucous membranes
Cardiovascular: Rhythm & rate is regular, Pedal edema is absent, JVD pressure is normal, S1S2 is normal and Rub present
Respiratory: Respiratory effort normal and Other (Decreased in the bilateral bases.)
GI: Soft, Distention absent, Flat, Non tender and Normal bowel sounds
Neuro/Psych: AO x 3
Data Reviewed
-
Date of Service: April 08, 2025
Medical Decision Making: Reviewed Test Results, Independent Historian Assessment and Test Interpretation
EKG: Tracing Personally Visualized and interpreted and Report Reviewed by me
Echo: Report Reviewed by me
X-Ray/CT/US/MRI/NUC/PET: Image Personally Visualized and interpreted and Report Reviewed by me
Medical Tests (PFT, Pathology etc): Image Personally Visualized and interpreted and Report Reviewed by me
Labs: Labs Reviewed by me
Old Records: Reviewed
[2025-04-08] MEDS: PLAVIX 75 MG PO (08:47)
[2025-04-08] MEDS: LIDOCAINE 4% PATCH 1 PATCH TOPICAL (08:47)
[2025-04-08] MEDS: PACERONE 200 MG PO ×3 (08:47→22:41)
[2025-04-08] MEDS: LOW STRENGTH ASPIRIN 81 MG PO (08:47)
[2025-04-08] MEDS: PROTONIX 40 MG PO (08:47)
[2025-04-08] MEDS: MAGNESIUM OXIDE 400 MG PO ×2 (08:48→20:22)
[2025-04-08] MEDS: SENOKOT 8.6 MG PO ×2 (08:48→20:22)
--- NOTE | 2025-04-08 09:43 | W.PN.ANS.POP ---
Anesthesia Post Operative
- Anesthesia Post Op Note
Vital Signs Stable-See Nursing Note: Yes
Airway Patent: Yes
Adequate Pain Control: Yes
Change in Mental Status: No
Current Postoperative Nausea & Vomiting: No
Anesthesia Complications: No
General Anesthetic Recall: No
Unplanned Admission: No
Post Op Hydration Adequate: Yes
[2025-04-08 10:05] LABS: Glucose - Point of Care 101 mg/dl (70-99)
[2025-04-08] MEDS: NSS IV (10:38)
--- NOTE | 2025-04-08 11:12 | CM ---
Chart reviewed. Patient is independent of ADLS, lives with his in a 2 STH, 2 JULIA, 0 DME. Patient lying in bed at bedside. Plan is for the patient to return home with CT Transitional RN. CM to follow
--- NOTE | 2025-04-08 12:00 | PTCARENOTE ---
Left pleural chest tube d/c'd as ordered, patient tolerated well. States pain better controlled. Assisted back oob to chair, VS obtained, stable. Perusing menu for lunch, at bedside.
[2025-04-08 12:10] LABS: Glucose - Point of Care 119 mg/dl (70-99)
--- NOTE | 2025-04-08 12:41 | W.PN.INTV ---
Today's Communication / Plan
Recommendations
Doing well post extubation, wean O2 as tolerated
Pain control per team
Encouraged OOB/IS, PT
Chest tube/further postop management per team
Can transfer to tele, we will sign off upon transfer
Assessment
-
69-year-old male with previous history of CAD, aortic stenosis, hypertension undergoing workup for TAVR with known history of severe . Underwent recent left heart catheterization on 03/14/2025 which demonstrated chronically occluded RCA, 50% left
main. Underwent surgical aortic valve replacement with bypass x 2 on 04/07/25. Perioperatively transferred to CVICU for further management on mechanical ventilation.
Aortic valve stenosis with multivessel coronary artery disease involving the ostial left main and UNIX ENGINEER to the proximal RCA s/p Surgical aortic valve replacement [27 mm biological valve] & Coronary artery bypass grafting x 2 (In situ VIGIL to LAD, Ao
to RSVG to distal RCA) 04/07/25
Perioperative mechanical ventilation
Postoperative anemia
Conditions present prior to admission
coronary artery disease s/p cardiac stent x2 2020
severe aortic stenosis
hypertension
dyslipidemia
carotid artery disease
spinal stenosis
BL CTR
cyst removed from elbow
hip replacements x2 BL
BL knee replacement
Plan
S/p AVR/CAB POD #1
Titrate off pressors per protocol
ECHO reviewed with normal function/ stage II DD noted
PA catheter discontinued
Management of chest tubes per primary service
Pain control
RASS goal of 0 to -1
Intubated for procedure, extubated and doing well
ABG(s) reviewed/adequate
CXR with stable postop changes
Maintain supplement oxygen as needed--wean as tolerated
No prior history of pulmonary disease
Prior PFTs reviewed--normal
Can add nebulizers if needed
Aspiration precautions
Encouraged incentive spirometry, OOB/ambulation/early mobility
Advance diet as tolerated following extubation
GI prophylaxis if indicated for mechanical ventilation >48 hours
Monitor critical I/O's
Coffey/chest tube output
Hb/platelets postoperatively stable
Trend CBC for now
Can transfuse if indicated for Hb <7, plt <50 in surgical patients
DVT prophylaxis including SCDs
Insulin protocol -- Transitioned to SQ/off as indicated per team
Diagnostic Data
Chest X-Ray: 04/07/25- 1. Clear lungs. 2. Tubes and lines noted
CT Scan: CHEST 03/07/25- Chest: Small subpleural right lower lobe pulmonary nodules measuring up to 4 mm (series 716, images 81, 86 and 89). No areas of airspace disease, pleural effusions, pericardial effusions or enlarged lymph nodes in the thorax.
Origins of the great vessels from the aortic arch are patent. Moderate coronary artery and aortic valve calcifications.
DOUG 04/07/25-Overall LVEF is approximately 55% with no RWMA. Moderate concentric left ventricular hypertrophy. Stage II Diastolic dysfunction. Trace mitral regurgitation. Mild tricuspid regurgitation. Moderate to severe aortic stenosis. Mild
aortic insufficiency. HANNY calculates to 1.2 cm2 by continuity equation. Mid ascending aorta is nelia dilated measuring 3.5 cm at the level of the RPA. Mild sessile atheroma noted in the descending aorta and distal arch.
[facility] 03/14/25-Successful IVUS of the 50% ostial left main coronary artery lesion demonstrating borderline stenosis (MLA = 6.0 mm�).
PFT's: 04/05/2025-FEV1 3.69 L 131%, FVC 4.73 L 128%, ratio 78. TLC 6.2 98% DLCO 132% --normal study
Reports and relevant images were personally reviewed.
Critical Care time 31 mins -- The patient is admitted for acute critical illness for the treatment of vital organ failure and/or prevention of further life-threatening conditions. Total care includes time spent in review of history, physical exam,
medications, hemodynamic/ventilator parameters, laboratory data, imaging and discussion with house staff, pharmacy, respiratory therapy, vessel manager, and nursing.
Subjective Dataa
Subjective Data
Date of Service:
Date of Service: April 08, 2025
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
Subjective:
Doing well post extubation, no new complaints
Pain is minimal
Objective Data
Data Reviewed
Vital Signs / I&O / Oxygen:
Vital Signs
Temp Pulse Resp BP Pulse Ox
97.7 F 65 19 118/62 96
04/08/25 12:00 04/08/25 12:15 04/08/25 12:00 04/08/25 12:00 04/08/25 12:00
Intake and Output
04/07/25 04/08/25 04/09/25
06:59 06:59 06:59
Intake Total 2371.5 / 2384.0 552.0 / 552.0
Output Total 1290 / 1325 110 / 110
Balance 1081.5 / 1059.0 442.0 / 442.0
SaO2 [CPAP/PSV] 98
SaO2 [SIMV] 96
SaO2 96
Nasal Cannula flow liters per 2
minute
Physical Exam
General: Comfortable and Other (NAD)
HEENT: Normocephalic, Anicteric and Moist Mucous Membranes
Cardiovascular: S1-S2 and Regular Rhythm
Respiratory: Clear, Non-Labored Respirations and Chest Tube
GI: Soft, Non Distended and Non Tender
Neurology: Awake, Alert, Oriented and No Motor Deficits
Skin: Warm, Dry and Good Color
Labs/Micro/Reports
Lab Data
04/08/25 02:58
04/08/25 02:58
Laboratory Results
04/07/25
12:33
PT 17.2 H
INR 1.44
APTT 30.9
pH 7.43
pCO2 40
pO2 155 H
HCO3 26.5
O2 Delivery Level
Microbiology
04/05/25 08:28 Nose MRSA Screen - Final
No Methicillin Resistant Staphylococcus aureus isolated.
[2025-04-08] MEDS: FERRLECIT 110 MG IV (14:15)
--- NOTE | 2025-04-08 16:18 | PTCARENOTE ---
VS obtained, assessment stable. Patient states pain controlled.
[2025-04-08] MEDS: REMOVE LIDOCAINE PATCH 1 PATCH REMOVE (20:22)
--- NOTE | 2025-04-08 21:00 | PTCARENOTE ---
Patient received OOB in chair watching movie. Patient A+A+Ox3. No neurological deficits noted. No c/o headache, dizziness or lightheadedness. Roxicodone for pain management. Patient assisted to bedside commode with assist x1 - No BM - Positive
flatus. Patient assisted to bed with assist x1. O2 2L via NC. SpO2 98%. Sinus Rhythm. Heart rate 60's. Blood pressure 133/60 (79). AV Wires insulated. No c/o chest pain, pressure or discomfort. Normoactive bowel sounds. Voided 175 ml
yellow urine. Two Mediastinal chest tubes - Intact and patent - 10 ml red drainage - No air leak. Generalized edema. Positive, palpable pulses. Sternal incision intact - Surgical adhesive - Open to air. Right groin region - Puncture site
intact. Right lower extremity incision intact. Right I.J. Cordis. Assessment as documented.
[2025-04-08] MEDS: LIPITOR 40 MG PO (22:41)
[2025-04-09] VITALS (11 sets, daily range): BP systolic 120–165; BP diastolic 56–82; PULSE 72; O2SAT 94; BMI 28.0
--- NOTE | 2025-04-09 | PTCARENOTE ---
Patient sleeping. No further changes from previous assessment.
--- NOTE | 2025-04-09 00:13 | W.PN.CT ---
Today's Communication / Plan
-
Plan:
-No major issues overnight. Hemodynamically and neurologically intact
-Off all drips
-Monitor med chest tube for possible D/C 110/225. CXR from this AM looks clear with mild left basilar atelectasis on my review, F/u official report
-Will pull temporary PW prior to d/c of mediastinal chest tube
-Cont. current meds (ASA, Plavix, Lipitor, Toprol XL, Amio, Protonix)
-Monitor hyponatremia, 132. Will diurese and restrict fluid
-Monitor thrombocytopenia, 115K
-Maintain cordis another day
-Encourage use of IS
-OOB into chair/Ambulate
-PT/OT to see given spinal stenosis with extensive past orthopedic procedures of hip and knees
-Home vs SNF in 1-2 days
Assessment / Plan
-
- Severe symptomatic and mv-CAD - s/p Surgical aortic valve replacement [27 mm Mack Inspiris Resilia biological valve]; Coronary artery bypass grafting x 2 (In situ VIGIL to LAD, Ao to RSVG to distal RCA); Left atrial appendage exclusion [35 mm
device] by Dr. Farooq on 04/07/25, pod #2
- Intraop DOUG: LVEF was 60% pre and 65% post procedure with no new regional wall motion abnormalities. His left atrial appendage was verified to be free of any thrombus or debris preoperatively and found to be totally occlusive postoperatively.
- Symptomatic severe aortic valve stenosis
- Multivessel coronary artery disease involving the ostial left main and CHIROPRACTIC NEUROLOGIST of RCA
- Hx CAD S/P PCI with stent to mid LAD
- Mild TR
- Mid Asc. Aorta dilatation (3.5 cm)
- LVEF 55% per intraop DOUG
- Hypertension
- Hyperlipidemia
- Carotid artery disease
- Spinal stenosis
- S/p B/L THR
- S/P B/L TKR
- Acute postop blood loss anemia
- Acute postop thrombocytopenia (stable without active bleed)
- Acute postop atelectasis
- Acute postop hypovolemia with subsequent hypervolemia
- Suspected acute postop pericarditis on ECG/+rub
- Acute postop hyponatremia
Discussed patient care with: Cardiology, Nursing, Respiratory Therapy, Pharmacy and Care Team
Subjective
-
Date of Service: April 09, 2025
Pt c/o mild incisional pain, otherwise feels well
Objective Data
-
PT 17.2 Sec (11.4-14.6) H 04/07/25 12:33
INR 1.44 04/07/25 12:33
APTT 30.9 Sec (23.4-35.0) 04/07/25 12:33
Vital Signs
Vital Signs
Temp Pulse Resp BP Pulse Ox
99.0 F 68 16 126/62 98
04/08/25 22:35 04/08/25 23:15 04/08/25 22:35 04/08/25 22:41 04/08/25 22:35
CT Intake/Output/Weight
04/08/25 04/08/25 04/09/25
06:59 18:59 06:59
Intake Total 1013.7 / 2384.0 1092.0 / 1372.0 280 / 1372.0
Output Total 720 / 1325 730 / 1175 445 / 1175
Balance 293.7 / 1059.0 362.0 / 197.0 -165 / 197.0
SaO2: 98 (2L)
Physical Exam
-
General: Awake, Oriented and AOx3
Cardiovascular: Regular rate & rhythm, No Murmurs, No Rub and No Gallop
Respiratory: Rales (basilar rales) and Decreased Breath Sounds (at bases )
Sternum: Stable
Incision: Clean, Dry, Intact and Dressing Intact
Extremities: Other (trace edema)
Data Reviewed
-
Lab Results: Results Reviewed
Medications: Active Meds Reviewed
Chest X-Ray: Report Reviewed and Image Reviewed
ECG: Report Reviewed and Image Reviewed
[2025-04-09 03:49] LABS: Hematocrit 31.1 % (39.0-52.0); Hemoglobin 10.6 g/dL (13.0-18.0); Mean Corp Hgb Conc. 34.1 g/dL (33.0-37.0); Mean Corpuscular Volume 91.2 fL (80.0-94.0); Platelet Count 115 10^3/uL (130-400); Red Cell Dist. Width 16.4 % (11.5-14.5)
[2025-04-09 03:59] LABS: Blood Urea Nitrogen 24 mg/dl (9-20); Calcium 8.5 mg/dl (8.4-10.2); Carbon Dioxide 31 mmol/L (22-30); Chloride 103 mmol/L (98-107); Estimated Creatinine Clearance 89 ml/min; Glucose 142 mg/dl (70-99); Magnesium 1.9 mg/dl (1.6-2.3); Potassium 4.5 mmol/L (3.5-5.1); Sodium 132 mmol/L (135-145); eGFR > 60.00
[2025-04-09] MEDS: TYLENOL PO (05:00)
--- NOTE | 2025-04-09 08:06 | PTCARENOTE ---
Received pt from nightshift RN; pt AAOx3 and resting comfortable in chair; NSR on monitor and VSS: Epicardial A/V wires insulated; RIJ Cordis and PIV x1 patent; Lungs diminished; CT x2 to -2o wall suction, no air leak and no crepitus noted; IS to
1250; positive bowel sounds; pt voiding clear yellow urine; palpable pulses throughout; trace generalized edema noted; all surgical sites C/D/I; see nursing documentation for further details.
[2025-04-09] MEDS: LOW STRENGTH ASPIRIN 81 MG PO (08:12)
[2025-04-09] MEDS: BACTROBAN 2% OINTMENT 1 APPLIC NASAL ×2 (08:12→19:56)
[2025-04-09] MEDS: PLAVIX 75 MG PO (08:12)
[2025-04-09] MEDS: SENOKOT 8.6 MG PO (08:12)
[2025-04-09] MEDS: MAGNESIUM OXIDE 400 MG PO ×2 (08:12→19:56)
[2025-04-09] MEDS: PACERONE 200 MG PO ×3 (08:12→21:33)
[2025-04-09] MEDS: PROTONIX 40 MG PO (08:12)
[2025-04-09] MEDS: TOPROL XL 12.5 MG PO ×2 (08:12→19:56)
[2025-04-09] MEDS: NEURONTIN 100 MG PO ×3 (08:12→21:32)
[2025-04-09] MEDS: LIDOCAINE 4% PATCH TOPICAL (08:13)
[2025-04-09] MEDS: LASIX 20 MG IV (09:11)
--- NOTE | 2025-04-09 09:55 | W.PN.UPDATE ---
Update Note
Progress Note Update
No pacing required. Temporary atrial and ventricular wires clipped to skin level.
--- NOTE | 2025-04-09 10:11 | PTCARENOTE ---
Mediastinal Chest tubes X2 removed per CTNP order; CTNP at bedside and A/V wires cut by CTNP.
--- NOTE | 2025-04-09 11:53 | PTCARENOTE ---
Assessment unchanged; NSR on monitor and VSS; family at bedside and pt is resting comfortably in chair.
[2025-04-09] MEDS: TYLENOL 975 MG PO ×2 (13:48→21:33)
[2025-04-09] MEDS: FERRLECIT 110 MG IV (13:48)
--- NOTE | 2025-04-09 15:40 | PTCARENOTE ---
Assessment unchanged; NSR on monitor and VSS; pt ambulating room with RN and walker.
[2025-04-09] MEDS: NSS IV (19:56)
[2025-04-09] MEDS: REMOVE LIDOCAINE PATCH REMOVE (19:57)
[2025-04-09] MEDS: SENOKOT PO (19:57)
--- NOTE | 2025-04-09 20:43 | PTCARENOTE ---
received pt from previous rn. pt AAOx4. NSR per tele monitor HR 70s. +pulses, trace b/l LE edema. pox 99% on RA. lungs diminished at bases. IS 1250. coughing and deep breathing encouraged. +bs. pt voiding in urinal spontaneously. all surgical
incision intact. RIJ cordis infusing KVO. PIVx1 intact. plan of care discussed and questions encouraged. call roque within reach. see worklist for full nursing assessment and nursing interventions.
[2025-04-09] MEDS: LIPITOR 40 MG PO (21:32)
[2025-04-09] MEDS: KCL 20 MEQ PO (21:33)
--- NOTE | 2025-04-10 | PTCARENOTE ---
pt reassessed. VSS. NSR per tele monitor. pox 93% on RA. assessment remains unchanged.
[2025-04-10 02:41] VITALS: BP 126/62
[2025-04-10 03:14] LABS: Hematocrit 31.9 % (39.0-52.0); Hemoglobin 10.8 g/dL (13.0-18.0); Mean Corp Hgb Conc. 33.9 g/dL (33.0-37.0); Mean Corpuscular Volume 90.9 fL (80.0-94.0); Platelet Count 119 10^3/uL (130-400); Red Cell Dist. Width 16.1 % (11.5-14.5)
[2025-04-10 03:27] LABS: Blood Urea Nitrogen 17 mg/dl (9-20); Calcium 8.8 mg/dl (8.4-10.2); Carbon Dioxide 29 mmol/L (22-30); Chloride 102 mmol/L (98-107); Estimated Creatinine Clearance 89 ml/min; Glucose 102 mg/dl (70-99); Magnesium 2.2 mg/dl (1.6-2.3); Potassium 4.2 mmol/L (3.5-5.1); Sodium 134 mmol/L (135-145); eGFR > 60.00
--- NOTE | 2025-04-10 03:42 | W.PN.CT ---
Today's Communication / Plan
-
Plan:
-No major issues overnight. Hemodynamically and neurologically intact
-Off all drips
-Chest tube and temporary PW d/c'd yesterday 04/09 without incident
-Will f/u 2-view cxr today
-D/C cordis
-Cont. current meds (ASA, Plavix, Lipitor, Toprol XL, Amio, Protonix)
-Hyponatremia resolving, 132->134. Will cont gentle diureses and restrict fluid
-Thrombocytopenia resolving, 115K->119K
-Encourage use of IS
-OOB into chair/Ambulate
-D/C home today
Assessment / Plan
-
- Severe symptomatic and mv-CAD - s/p Surgical aortic valve replacement [27 mm Mack Inspiris Resilia biological valve]; Coronary artery bypass grafting x 2 (In situ VIGIL to LAD, Ao to RSVG to distal RCA); Left atrial appendage exclusion [35 mm
device] by Dr. Farooq on 04/07/25, pod #3
- Intraop DOUG: LVEF was 60% pre and 65% post procedure with no new regional wall motion abnormalities. His left atrial appendage was verified to be free of any thrombus or debris preoperatively and found to be totally occlusive postoperatively.
- Symptomatic severe aortic valve stenosis
- Multivessel coronary artery disease involving the ostial left main and SLIDE MACHINE TENDER of RCA
- Hx CAD S/P PCI with stent to mid LAD
- Mild TR
- Mid Asc. Aorta dilatation (3.5 cm)
- LVEF 55% per intraop DOUG
- Hypertension
- Hyperlipidemia
- Carotid artery disease
- Spinal stenosis
- S/p B/L THR
- S/P B/L TKR
- Acute postop blood loss anemia
- Acute postop thrombocytopenia (stable without active bleed)
- Acute postop atelectasis
- Acute postop hypovolemia with subsequent hypervolemia
- Suspected acute postop pericarditis on ECG/+rub
- Acute postop hyponatremia
Discussed patient care with: Cardiology, Nursing, Respiratory Therapy, Pharmacy and Care Team
Subjective
-
Date of Service: April 10, 2025
Pt c/o mild incisional pain, otherwise feels well. Ambulating halls without difficulty. Wants to go home
Objective Data
-
Lab Results
04/10/25 02:41
04/10/25 02:41
PT 17.2 Sec (11.4-14.6) H 04/07/25 12:33
INR 1.44 04/07/25 12:33
APTT 30.9 Sec (23.4-35.0) 04/07/25 12:33
Vital Signs
Vital Signs
Temp Pulse Resp BP Pulse Ox
98 F 68 16 126/57 93
04/10/25 00:00 04/09/25 23:39 04/10/25 00:00 04/09/25 23:39 04/10/25 00:00
CT Intake/Output/Weight
04/09/25 04/09/25 04/10/25
06:59 18:59 06:59
Intake Total 360 / 1452.0
Output Total 1055 / 1785 1800 / 2950 1150 / 2950
Balance -695 / -333.0 -1800 / -2950 -1150 / -2950
SaO2: 93 (RA)
Physical Exam
-
General: Awake, Oriented and AOx3
Cardiovascular: Regular rate & rhythm, No Murmurs, No Rub and No Gallop
Respiratory: Decreased Breath Sounds (at bases, otherwise clear )
Sternum: Stable
Incision: Clean, Dry, Intact and Dressing Intact
Extremities: Other (+trace edema )
Data Reviewed
-
Lab Results: Results Reviewed
Medications: Active Meds Reviewed
Chest X-Ray: Report Reviewed and Image Reviewed
ECG: Report Reviewed and Image Reviewed
--- NOTE | 2025-04-10 04:27 | PTCARENOTE ---
Pt reassessed. AM labs obtained. VSS. NSR per tele monitor. HR 60-70s. assessment remains unchanged
[2025-04-10 05:23] VITALS: BMI 27.2
[2025-04-10] MEDS: TYLENOL PO (06:26)
[2025-04-10] MEDS: TYLENOL 975 MG PO (06:36)
[2025-04-10 07:31] VITALS: BP 114/58
[2025-04-10] MEDS: PROTONIX 40 MG PO (07:32)
[2025-04-10] MEDS: SENOKOT 8.6 MG PO (07:32)
[2025-04-10] MEDS: NEURONTIN 100 MG PO (07:32)
[2025-04-10] MEDS: PACERONE 200 MG PO (07:32)
[2025-04-10] MEDS: BACTROBAN 2% OINTMENT 1 APPLIC NASAL (07:32)
[2025-04-10] MEDS: TOPROL XL 12.5 MG PO (07:32)
[2025-04-10] MEDS: LOW STRENGTH ASPIRIN 81 MG PO (07:32)
[2025-04-10] MEDS: PLAVIX 75 MG PO (07:32)
[2025-04-10] MEDS: LIDOCAINE 4% PATCH TOPICAL (07:33)
[2025-04-10] MEDS: MAGNESIUM OXIDE 400 MG PO (07:35)
--- NOTE | 2025-04-10 07:41 | PTCARENOTE ---
Received pt from third shift lieutenant RN; pt AAOx3 and resting comfortably in chair; NSR on monitor and VSS; RIJ Cordis and PIV x1 patent; Lungs diminished; IS to 1250; positive bowel sounds; pt voiding yellow urine; trace generalized edema noted; weak lower
extremity pulses; all surgical sites C/D/I; see flow sheet for details.
--- NOTE | 2025-04-10 07:47 | W.DCSUMMARY ---
Discharge Summary
Discharge Data
Date of Admission: 04/07/25
Date of Discharge: 04/10/25
-
Pending Results: No
Hospital Course
Primary care physician: Jessika Rob
Outpatient spanish instructor: Scott Joy
Inpatient consultants: [facility] Cardiology, pulmonary bindery manager, PT/OT
Procedures:
1. Aortic valve replacement, CABG x 2, left atrial appendage clip (04/07/25)
Primary Diagnosis:
1. Aortic valve stenosis with multivessel coronary artery disease involving the ostial left main and FEED MIXER to the proximal RCA
Secondary Diagnoses:
1. Hx CAD S/P PCI with stent to mid LAD
2. Hypertension
3. Hyperlipidemia
4. Spinal stenosis
5. S/p B/L THR
6. S/P B/L TKR
- Acute postop blood loss anemia
- Acute postop thrombocytopenia (stable without active bleed)
- Acute postop respiratory insufficiency
- Acute postop atelectasis
- Acute postop hypovolemia with subsequent hypervolemia
- Suspected acute postop pericarditis on ECG/+rub
- Acute postop hyponatremia
HPI: Lior Sims is a 69 year old male electively admitted on 04/28 for AVR, CABG, and left atrial appendage clip due to shortness of breath with severe aortic stenosis and multivessel coronary disease.
Hospital course: Patient was taken to the operating room and underwent an AVR #27 Inspiris, CABG x 2 with VIGIL�LAD and SVG�to distal RCA, and left atrial appendage #35mm clip with Dr. Dirk Farooq. Patient tolerated standard Ancef perioperative
dosing without incident. Postprocedure DOUG reported an EF of 65% with AV gradients of 11/6 mmHg, trace AI, trace MR, and mild TR. For further details please see operative report. Patient required no intraoperative blood products and returned to
[facility] on Levophed, Cardene, insulin, Precedex. He received a total of 1 L lactated Ringer's for expected postoperative hypovolemia and was extubated at 1610 the day of surgery. He was weaned off Levophed and Cardene overnight. Lactate of 2.1
normalized to 1 with fluid resuscitation. On postoperative day 1, pleural chest tube was removed and PT/OT were consulted for functional evaluation due to his history of spinal stenosis. PT recommended discharge to home. Aspirin and Plavix were
initiated. On postoperative #2, the mediastinal chest tubes were removed. Temporary epicardial atrial and ventricular wires were clipped to skin level. Patient diuresed well with Lasix 20 mg IV. Toprol XL home dose was increased from 12.5 to
25mg daily for improved heart rate and blood pressure control. Patient experienced no postoperative arrhythmias and prophylactic amiodarone was discontinued on discharge. Prescription for furosemide 20 mg daily as needed for weight gain of more than
3 pounds in 1 day or 5 pounds in 1 week. On postoperative day #3, the right IJ was removed. A two-view chest x-ray reported mild atelectasis in the lung bases. Trace bilateral pleural fluid. No focal consolidation or pneumothorax and stable
cardiomediastinal silhouette. Labs on day of discharge: WBC 12.2, hemoglobin 10.8, platelets 119K (from 115K), sodium 134, potassium 4.2, creatinine 0.7. Patient will be followed by transitional nurse team and have repeat BMP and CBC in 1 week.
Home medication changes:
Toprol XL 12.5mg to 25mg daily
Pain regimen: prn Tylenol, Oxycodone, cyclobenzaprine + scheduled gabapentin x 10 days
STOP vitamins while on Plavix except for B, C, D3, and [place] 3
furosemide 20mg daily prn weight gain
Discharge Plan
-
Patient Disposition: Home (Routine Discharge)
Discharge Diagnosis/Procedures: AVR, CABG x 2, let atrial appendage clip (04/05/25)
Condition: Good
Diet: Low Cholesterol and Low Sodium
Activity: No strenuous activity
Driving Restrictions: Not until seen by your Dr
Bathing Restrictions: OK to Shower
Blood Work: CBC and BMP in 1 week
Other Services: Cardiac Rehab
Specialty Instructions: Weigh Daily- Call MD for wt gain/loss 3 lbs overnight/5 lbs in 1 week
Referrals:
CT Transitional Care Nurse [Outside]
Referral Note: The Cardiothoracic Transitional Care Nurse will call you to set up a visit in 1-2 days.
Scott Joy DO [Non-Admitting Privileges] - 06/03/25 7:20 am
Jessika Rob DO [Family Provider, [facility]]
Dirk Farooq MD [Active, Cardiac Surgery] - 05/09/25 2:30 pm
Additional Discharge Medication Instructions: Toprol XL 12.5mg to 25mg daily
Lasix as needed for fluid retention
Pain regimen: prn Tylenol, Oxycodone, cyclobenzaprine + scheduled gabapentin x 10 days
STOP vitamins while on Plavix except for B, C, D3, and [place] 3
Prescriptions:
New
acetaminophen 325 mg Tablet
650 mg PO Q4HPRN PRN (Reason: mild pain,headache,temp >101F ) Qty: 0 0RF
atorvastatin 40 mg Tablet
40 mg PO HS Qty: 30 2RF
clopidogrel 75 mg Tablet
75 mg PO DAILY Qty: 30 2RF
cyclobenzaprine 10 mg Tablet
5 mg PO Q8HPRN PRN (Reason: muscle spasm) Qty: 10 0RF
pantoprazole 40 mg Tablet,Delayed Release (Dr/Ec)
40 mg PO DAILY Qty: 30 2RF
gabapentin 100 mg Capsule
100 mg PO TID Qty: 30 0RF
oxycodone 5 mg Tablet
5 mg PO Q4HPRN PRN (Reason: severe pain) Qty: 10 0RF
metoprolol succinate [Toprol XL] 25 mg tablet extended release 24 hr
25 mg PO DAILY Qty: 30 2RF
furosemide [Lasix] 20 mg tablet
20 mg PO .daily prn Qty: 7 0RF
Rx Instructions:
Take 1 tab daily if weight gain of 3 pounds in 24 hours or 5 pounds in a week.
Continued
aspirin 81 MG tablet,delayed release (DR/EC)
81 mg PO DAILY
omega-3 fatty acids 1,000 mg Capsule
1,000 mg PO TID
cholecalciferol (vitamin D3) [Vitamin D3] 125 mcg (5,000 unit) Tablet
125 mcg PO DAILY
vitamin B complex Capsule
1 cap PO DAILY
ascorbic acid (vitamin C) [Vitamin C] 1,000 mg Tablet
1,000 mg PO 4XD
Discontinued
metoprolol succinate 25 MG tablet extended release 24 hr
12.5 mg PO DAILY
red yeast rice 600 mg Capsule
600 mg PO TID
garlic 500 mg Capsule
500 mg PO DAILY
minerals Tablet
1 tab PO TID
turmeric root extract [Curcuplex-95] 500 mg Capsule
500 mg PO DAILY
Nattokinase 50 mg Capsule
150 mg PO DAILY
Discharge Orders:
Discharge Patient (As Directed); Ordered 04/10/25
Ordered By: Charlene Fofana
Care Plan Goals
Care Plan Goals:
Problem: Readiness for enhanced knowledge related to diagnosis and treatment plan
Goal: Understand your diagnosis and treatment plan needs, including medications if applicable.
Instructions: Know your diagnosis, underlying causes and treatment plan options, including medications if applicable. Consult with your health care team to learn about your diagnosis and treatment plan, including medications if applicable.
Discharge Date and Time
Print Language: NEPALI
--- NOTE | 2025-04-10 10:43 | PTCARENOTE ---
Pt showered self with CHG soap; pt dressed slep and awaiting discharge home.
[2025-04-10 11:35] VITALS: BP 113/64
== END 2025-04-10 13:06 | disposition home or self-care (01) | DRG 220 ==
LOC: CVICU 04:50
PROVIDERS: Anesthesiology; Nurse Practitioner; ADMITTING PHYSICIAN Thoracic Surgery (Cardiothoracic Vascular Surgery); CONSULT PHYSICIAN Internal Medicine; FAMILY PHYSICIAN Family Medicine; OTHER PHYSICIAN Internal Medicine Cardiovascular Disease
PROC: 021009W Bypass Coronary Artery, One Artery from Aorta with Autologous Venous Tissue, Open Approach (ICD-10-PCS; 2025-04-07)
PROC: 5A1221Z Performance of Cardiac Output, Continuous (ICD-10-PCS; 2025-04-07)
PROC: B24BZZ4 Ultrasonography of Heart with Aorta, Transesophageal (ICD-10-PCS; 2025-04-07)
PROC: 02100Z9 Bypass Coronary Artery, One Artery from Left Internal Mammary, Open Approach (ICD-10-PCS; 2025-04-07)
PROC: 02RF08Z Replacement of Aortic Valve with Zooplastic Tissue, Open Approach (ICD-10-PCS; 2025-04-07)
PROC: 06BP4ZZ Excision of Right Saphenous Vein, Percutaneous Endoscopic Approach (ICD-10-PCS; 2025-04-07)
PROC: 02L70CK Occlusion of Left Atrial Appendage with Extraluminal Device, Open Approach (ICD-10-PCS; 2025-04-07)
DX: I35.2 Nonrheumatic aortic (valve) stenosis with insufficiency (principal); D62 Acute posthemorrhagic anemia; E87.1 Hypo-osmolality and hyponatremia; I30.8 Other forms of acute pericarditis; J98.11 Atelectasis; I25.10 Atherosclerotic heart disease of native coronary artery without angina pectoris; I10 Essential (primary) hypertension; I25.82 Chronic total occlusion of coronary artery; D69.59 Other secondary thrombocytopenia; R06.89 Other abnormalities of breathing; E86.1 Hypovolemia; E87.70 Fluid overload, unspecified; E78.5 Hyperlipidemia, unspecified; M48.00 Spinal stenosis, site unspecified; I77.810 Thoracic aortic ectasia; Z95.5 Presence of coronary angioplasty implant and graft
CPT/HCPCS: 36415; 71045; 71046; 80048; 80053; 81003; 82248; 82330; 82565; 82805; 82810; 82947; 82962; 83036; 83605; 83735; 84132; 84302; 84520; 85014; 85018; 85025; 85027; 85049; 85610; 85730; 86803; 86850; 86900; 86901; 86920; 87070; 88305; 88311; 93005; 93312; 93320; 93325; 93880; 94002; 94010; 94727; 94729; 97116; 97163; 97167; 97530; 97535; J2916